=== PATIENT | male | born 1960 | race Hispanic/Latino ===

== ENCOUNTER 2019-09-03 20:10 | Emergency (ER) | payer OTHER ==
[~2019-09-03] VITALS: Ht 73.7 cm; Wt 70.0 kg
[~2019-09-03 20:10] MED LIST: FUROSEMIDE20 MG PO; ZPAK PO
[2019-09-03] MEDS ORDERED: GENTAMICIN SULF5 ML OS ×2 (20:39→20:43)
[2019-09-03 20:50] VITALS: BP 106/63
== END 2019-09-03 20:50 | disposition home or self-care (01) | DRG 125 ==
LOC: ED 20:10
DX: S05.02XA Injury of conjunctiva and corneal abrasion without foreign body, left eye, initial encounter (principal); W22.8XXA Striking against or struck by other objects, initial encounter; Y92.89 Other specified places as the place of occurrence of the external cause; Y99.0 Civilian activity done for income or pay

== ENCOUNTER 2021-03-14 19:51 | Emergency (ER) | payer OTHER ==
[~2021-03-14] VITALS: Ht 73.7 cm; Wt 75.0 kg
[~2021-03-14 19:51] MED LIST changes: +GENTAMICIN SULF5 ML OS
[2021-03-14 20:22] LABS: HEMATOCRIT 39.7 % (39.0-50.0); HEMOGLOBIN 13.2 g/dl (14.0-18.0); IMMATURE GRANULOCYTES 0.3 % (0.0-5.0); MEAN CELL VOLUME 91.1 fL CALC (80.0-100.0); MEAN CORPUSCULAR HGB 30.3 pG CALC (26.0-32.0); MEAN CORPUSCULAR HGB CONC 33.2 g/dL CAL (32.0-36.0); NEUT# 4.96 thou/uL (1.82-7.42); RED BLOOD COUNT 4.36 mill/uL (4.70-6.10)
[2021-03-14 20:37] LABS: ALBUMIN 3.8 g/dL (3.2-5.0); ALKALINE PHOSPHATASE 74 u/l (38-126); BILIRUBIN, TOTAL 0.3 mg/dL (0.0-1.4); BUN 12 mg/dL (9-20); BUN/CREATININE RATIO 20 (12-20 (CALC)); CARBON DIOXIDE 28 mmol/l (22-30); CHLORIDE 99 mmol/l (95-108); CREATININE 0.6 mg/dL (0.7-1.3); GFR > 60 ML/MIN (>=60 (CALC)); GFR FOR AFR.AMER. > 60 ML/MIN (>=60 (CALC)); POTASSIUM 4.1 mmol/l (3.5-5.1); SGOT/AST 39 u/l (17-59); TOTAL PROTEIN 8.2 g/dL (6.3-8.2)
[2021-03-14] MEDS ORDERED: MELOXICAM7.5 MG PO (20:43)
[2021-03-14 20:49] LABS: ANION GAP 11 (6-22 (CALC)); SODIUM 134 mmol/l (137-146)
[2021-03-14 20:59] LABS: INTERNATIONAL NORMALIZED RATIO 1.1 RATIO (0.7-1.3); PROTHROMBIN TIME 11.5 SECONDS (9.0-12.5)
[2021-03-14 21:22] LABS: D-DIMER 6.89 mg/L (0.19-0.60)
[2021-03-14] MEDS ORDERED: KEFLEX500 MG PO (21:30)
[2021-03-14 21:40] VITALS: BP 135/79
== END 2021-03-14 21:44 | disposition home or self-care (01) | DRG 603 ==
LOC: ED 19:51
PROVIDERS: Family Medicine
DX: L03.115 Cellulitis of right lower limb (principal); S80.861A Insect bite (nonvenomous), right lower leg, initial encounter; W57.XXXA Bitten or stung by nonvenomous insect and other nonvenomous arthropods, initial encounter

== ENCOUNTER 2021-05-28 17:51 | Emergency (ER) | payer OTHER ==
[~2021-05-28 17:51] MED LIST changes: +KEFLEX500 MG PO; +MELOXICAM7.5 MG PO
[2021-05-28 18:36] LABS: HEMATOCRIT 40.2 % (39.0-50.0); HEMOGLOBIN 13.3 g/dl (14.0-18.0); IMMATURE GRANULOCYTES 0.2 % (0.0-5.0); MEAN CELL VOLUME 94.8 fL CALC (80.0-100.0); MEAN CORPUSCULAR HGB 31.4 pG CALC (26.0-32.0); MEAN CORPUSCULAR HGB CONC 33.1 g/dL CAL (32.0-36.0); NEUT# 3.58 thou/uL (1.82-7.42); RED BLOOD COUNT 4.24 mill/uL (4.70-6.10); RED CELL DISTRI WIDTH 13.1 % (11.5-15.5)
[2021-05-28 18:50] LABS: ALBUMIN 3.7 g/dL (3.2-5.0); ALKALINE PHOSPHATASE 65 u/l (38-126); ANION GAP 13 (6-22 (CALC)); BILIRUBIN, TOTAL 0.5 mg/dL (0.0-1.4); BUN 17 mg/dL (9-20); BUN/CREATININE RATIO 28 (12-20 (CALC)); CARBON DIOXIDE 25 mmol/l (22-30); CHLORIDE 102 mmol/l (95-108); CREATININE 0.6 mg/dL (0.7-1.3); GFR > 60 ML/MIN (>=60 (CALC)); GFR FOR AFR.AMER. > 60 ML/MIN (>=60 (CALC)); POTASSIUM 3.6 mmol/l (3.5-5.1); SGOT/AST 47 u/l (17-59); SODIUM 137 mmol/l (137-146)
[2021-05-28] MEDS ORDERED: ULTRAM50 MG PO (19:04)
[2021-05-28 19:25] VITALS: BP 115/71
== END 2021-05-28 19:35 | disposition home or self-care (01) | DRG 556 ==
LOC: ED 17:51
DX: M25.562 Pain in left knee (principal)

== ENCOUNTER 2022-11-28 08:53 | Day surgery (SDC) | payer OTHER ==
[~2022-11-28] VITALS: Ht 157.5 cm; Wt 73.9 kg
[~2022-11-28 08:53] MED LIST changes: +HYDROXYCHLOR200 M1 PO; +METOPROL TAR25 MG PO; +PREDNISONE5 MG PO; +ULTRAM50 MG PO
[2022-11-28 10:41] VITALS: BP 116/85
== END 2022-11-28 10:57 | disposition home or self-care (01) | DRG 951 ==
LOC: ENDO 08:53 → ORM 11:20
PROVIDERS: ATTEND Internal Medicine Gastroenterology
PROC: 0DJD8ZZ Inspection of Lower Intestinal Tract, Via Natural or Artificial Opening Endoscopic (ICD-10-PCS; principal; 2022-11-28)
PROC: 0DB98ZX Excision of Duodenum, Via Natural or Artificial Opening Endoscopic, Diagnostic (ICD-10-PCS; 2022-11-28)
PROC: 0DB68ZX Excision of Stomach, Via Natural or Artificial Opening Endoscopic, Diagnostic (ICD-10-PCS; 2022-11-28)
DX: Z12.11 Encounter for screening for malignant neoplasm of colon (principal); K57.30 Diverticulosis of large intestine without perforation or abscess without bleeding; K64.8 Other hemorrhoids; K21.9 Gastro-esophageal reflux disease without esophagitis; K29.80 Duodenitis without bleeding; Z79.899 Other long term (current) drug therapy

== ENCOUNTER 2025-01-14 19:26 | Emergency (ER) | payer OTHER ==
[~2025-01-14] VITALS: Ht 157.5 cm; Wt 78.0 kg
[~2025-01-14 19:26] MED LIST changes: +CETIRIZINE10 MG PO; +PREDNISONE50 MG PO
[2025-01-14] MEDS ORDERED: valACYclovir 500 MG TAB PO ONE (19:40)
[2025-01-14] MEDS ORDERED: VALTREX1 GM PO (19:42)
[2025-01-14 20:00] VITALS: BP 129/78
== END 2025-01-14 20:00 | disposition home or self-care (01) | DRG 596 ==
LOC: ED 19:26
DX: B02.9 Zoster without complications (principal); N18.9 Chronic kidney disease, unspecified